=== PATIENT | male | born 1970 | race Caucasian/White ===

== ENCOUNTER 2016-09-09 12:15 | Emergency (ER) | payer OTHER ==
[2016-09-09 12:51] VITALS: BP 135/83; BMI 35.9
--- NOTE | 2016-09-09 13:07 | PDOC ---
History of Present Illness - General Chief Complaint: Pain Stated Complaint: rt hand swelling Time Seen by Provider: 09/09/16 13:07 History Source: Patient, Old Records Exam Limitations: No Limitations - History of Present Illness Initial Comments: 09/09/16 13:07 45 y/o right-hand dominant male with h/o HTN presents to the ED with c/o pain and swelling to his right hand that started yesterday. The patient states that he may have struck it against something but he has no distinct recollection of trauma. He states that the pain is mostly in the dorsum of the hand. He did not take anything for the pain. He denies fevers and chills. Past History - Past Medical History Allergies/Adverse Reactions: Allergies Allergy/AdvReac Type Severity Reaction Status Date / Time No Known Allergies Allergy Verified 09/09/16 12:47 Home Medications: Ambulatory Orders Aspirin [Aspirin EC] 325 mg PO DAILY 09/09/16 Olmesartan Medoxomil [Benicar (Nf)] 40 mg PO DAILY 09/09/16 Ramipril [Altace] 10 mg PO DAILY 09/09/16 HTN: Yes - Immunization History Td Vaccination: No TDAP Vaccination: No Immunization Up to Date: Yes - Psycho/Social/Smoking Cessation Hx Anxiety: No Suicidal Ideation: No Smoking History: Never smoked Have you smoked in the past 12 months: No Information on smoking cessation initiated: No Hx Alcohol Use: No Drug/Substance Use Hx: No Substance Use Type: None Review of Systems - Review of Systems Able to Perform ROS?: Yes Is the patient limited Luxembourger proficient: No Constitutional: No: Symptoms Reported HEENTM: No: Symptoms Reported Respiratory: No: Symptoms reported Cardiac (ROS): No: Symptoms Reported ABD/GI: No: Symptoms Reported : No: Symptoms Reported Musculoskeletal: Yes: See HPI Integumentary: Yes: See HPI Neurological: No: Symptoms reported *Physical Exam - Vital Signs Last Vital Signs Temp Pulse Resp BP Pulse Ox 135/83 97 09/09/16 12:35 09/09/16 12:35 - Physical Exam Comments: 09/09/16 13:09 GENERAL: Well developed, well nourished. Awake and alert. No acute distress. MUSCULOSKELETAL: Right hand There is swelling and ecchymosis to the dorsum of the right hand in the region of the fourth metacarpal. There is associated tenderness to palpation in this area. There is no sensory or motor deficit. EXTREMITIES: No cyanosis. No clubbing. No edema. No calf tenderness. SKIN: Warm and dry. Normal capillary refill. No rashes. No jaundice. NEUROLOGICAL: Alert, awake, appropriate. Cranial nerves 2-12 intact. Grossly non-focal exam. PSYCHIATRIC: Cooperative. Good eye contact. Appropriate mood and affect. Medical Decision Making - Medical Decision Making 09/09/16 13:10 45 y/o male with right hand pain and swelling with no clear VERONICA. DDx includes but is not limited to: contusion, fracture, sprain. Plan: 1. Plain film of the right hand 2. Pain management 3. Observe and re-evaluate 09/09/16 14:17 Addendum: Plain films are neagtive. Will discharge home. Follow-up with PCP. Return to the ED if Sx persist, worsen or new Sx arise. *DC/Admit/Observation/Transfer Diagnosis at time of Disposition: Right hand pain - Discharge Dispostion Disposition: HOME Condition at time of disposition: Stable Admit: No - Patient Instructions Printed Discharge Instructions: DI for Hand Pain Additional Instructions: The X-rays of your hand are negative. You may take tylenol or ibuprofen as needed for the pain. Follow-up with your primary care physician and return to the ED if your symptoms persist, worsen or new symptoms arise.
[2016-09-09 13:35] VITALS: PULSE 87; TEMP 99
== END 2016-09-09 14:35 | disposition home or self-care (01) ==
LOC: MERGE 12:15 → FER 12:15
DX: M79.641 Pain in right hand (principal); I10 Essential (primary) hypertension
CPT/HCPCS: 73130-TC-RT; 99282-25

== ENCOUNTER 2017-04-24 12:11 | Day surgery (SDC) | payer OTHER ==
[2017-04-23 15:49] VITALS: BMI 39.5
[2017-04-24 12:41] LABS: BASOPHIL 0.4 % (0-2.0); EOSINOPHIL 1.1 % (0-4.5); MEAN CELL VOLUME 88.4 fl (80-96); MEAN PLT VOLUME 8.6 fl (7.5-11.1); NEUTROPHILS 66.9 % (42.8-82.8); PLATELET COUNT 196 K/MM3 (134-434); RDW 14.5 % (11.9-15.9); WHITE BLOOD COUNT 6.8 K/mm3 (4.0-10.0)
[2017-04-24 12:45] LABS: URINE APPEARANCE SLCLOUDY; URINE BILIRUBIN NEGATIVE (NEGATIVE); URINE BLOOD NEGATIVE (NEGATIVE); URINE COLOR YELLOW; URINE GLUCOSE (UA) NEGATIVE (NEGATIVE); URINE KETONE NEGATIVE (NEGATIVE); URINE NITRITE NEGATIVE (NEGATIVE); URINE PROTEIN NEGATIVE (NEGATIVE); URINE UROBILINOGEN NEGATIVE mg/dL (0.2-1.0)
[2017-04-24 12:54] LABS: INR 0.98 (0.82-1.09); PROTHROMBIN TIME (PATIENT) 11.1 SEC (9.98-11.88)
[2017-04-24 12:57] LABS: ACTIVATED PTT 28.5 SECONDS (26.9-34.4)
[2017-04-24 12:59] LABS: ALK PHOS 91 U/L (45-117); ANION GAP 9 (8-16); BILIRUBIN,TOTAL 0.8 mg/dL (0.2-1.0); CALCIUM 9.4 mg/dL (8.5-10.1); CO2 24 mmol/L (21-32); CREATININE 0.9 mg/dL (0.7-1.3); GLUCOSE,RANDOM 93 mg/dL (74-106); SGOT/AST 32 U/L (15-37); SGPT/ALT 70 U/L (12-78)
[2017-04-24] MEDS ORDERED: ROCURONIUM BROMIDE 50 MG/5 ML VIAL ONE ×2 (15:06→15:52)
[2017-04-24] MEDS ORDERED: MIDAZOLAM HCL 2 MG/2 ML SINGLE DOSE VIAL ONE (15:06)
[2017-04-24] MEDS ORDERED: SUCCINYLCHOLINE CHLORIDE 200 MG/10 ML VIAL ONE (15:06)
[2017-04-24] MEDS ORDERED: PROPOFOL 20 ML ONE ×2 (15:06→15:34)
[2017-04-24] MEDS ORDERED: fentaNYL CITRATE 250 MCG/5 ML VIAL ONE (15:06)
[2017-04-24] MEDS ORDERED: BUPIVACAINE HCL/PF 0.5% (5MG/ML) 10 ML VIAL ONE (15:07)
[2017-04-24] MEDS ORDERED: DEXAMETHASONE SOD PHOSPHATE 4 MG/1 ML VIAL ONE (15:38)
[2017-04-24] MEDS ORDERED: ceFAZolin SODIUM 1 GM VIAL ONE (15:38)
[2017-04-24] MEDS ORDERED: ceFAZolin SODIUM 1 GM VIAL IVPB ONE (15:40)
[2017-04-24] MEDS ORDERED: ePHEDrine SULFATE 50 MG/1 ML AMPULE ONE (16:23)
[2017-04-24] MEDS ORDERED: GLYCOPYRROLATE 0.2 MG/1 ML VIAL ONE (16:38)
[2017-04-24] MEDS ORDERED: NEOSTIGMINE METHYLSULFATE 0.5 MG/ML - 10 ML MDV ONE (16:38)
[2017-04-24] MEDS ORDERED: BUPIVACAINE HCL/PF 0.5% (5MG/ML) 10 ML VIAL IJ ONE (16:49)
[2017-04-24] MEDS ORDERED: ONDANSETRON 4 MG/2 ML VIAL IVPUSH PRN (17:02)
[2017-04-24] MEDS ORDERED: ENOXAPARIN NA (PORCINE) 40 MG/0.4 ML DISP.SYRIN SQ ONE ×2 (17:02→19:05)
[2017-04-24] MEDS ORDERED: HYDROmorphone HCL CARPU-JECT 1 MG/1 ML DISP.SYRIN IVPB PRN (17:05)
--- NOTE | 2017-04-24 17:14 | OP ---
Operative Note - Note: Operative Date: 04/24/17 Pre-Operative Diagnosis: Morbid Obesity. Hypertension Operation: Laparoscopic Gastric Band. Wedge biopsy of liver Findings: 30 ml gastric pouch created with APS band Enlarged left lobe of liver noted and wedge biopsy performed Implants: Gastric Band plus sub-Q port Post-Operative Diagnosis: Same as Pre-op (Hepatomegaly) Surgeon: Jus Smith Director Video: Jamil Rose Anesthesia: General Estimated Blood Loss (mls): 30 Operative Report Dictated: Yes
[2017-04-24] MEDS ORDERED: SODIUM CHLORIDE 1,000 ML IV SCH (17:15)
[2017-04-24] MEDS ORDERED: oxyCODONE HCL 5 MG TABLET PO PRN (17:16)
[2017-04-24] MEDS ORDERED: PROMETHAZINE HCL 25 MG/1 ML VIAL IVPUSH PRN (17:16)
[2017-04-24] MEDS ORDERED: LACTATED RINGERS SOLUTION 1,000 ML IV SCH (17:30)
[2017-04-24] MEDS ORDERED: FAMOTIDINE 20 MG/50 ML IVPB 20 MG/50 ML MG IVPB ONE (17:33)
[2017-04-24 17:41] LABS: URINE LEUK ESTERASE Negative (NEGATIVE)
[2017-04-24 18:01] LABS: MCH 30.4 pg (25.7-33.7); MCHC 33.7 g/dl (32.0-35.9); MEAN CELL VOLUME 89.9 fl (80-96); MEAN PLT VOLUME 9.3 fl (7.5-11.1); PLATELET COUNT 165 K/MM3 (134-434); RDW 14.4 % (11.9-15.9); WHITE BLOOD COUNT 9.8 K/mm3 (4.0-10.0)
[2017-04-24 18:29] LABS: ANION GAP 10 (8-16); CALCIUM 9.1 mg/dL (8.5-10.1); CO2 26 mmol/L (21-32); GLUCOSE,RANDOM 108 mg/dL (74-106)
[2017-04-24 19:46] VITALS: BP 145/85; PULSE 100; TEMP 98.4
[2017-04-24] MEDS ORDERED: FAMOTIDINE/PF 20 MG/12 ML PUSH IVPUSH SCH ×2 (22:00)
[2017-04-24] MEDS ORDERED: FAMOTIDINE 20 MG/50 ML IVPB 50 ML IVPB SCH (22:00)
--- NOTE | 2017-04-25 06:18 | OP ---
DATE OF OPERATION: 04/24/2017 PREOPERATIVE DIAGNOSES: 1. Morbid obesity. 2. Hypertension. POSTOPERATIVE DIAGNOSES: 1. Morbid obesity. 2. Hypertension. 3. Hepatomegaly. PROCEDURE PERFORMED: 1. Gastric band for gastric restriction. 2. Wedge biopsy of the left lobe of the liver. 3. Diagnostic laparoscopy. OPERATING SURGEON: Jus Smith MD RESPIRATORY CARE SPECIALIST: Jamil Rose MD ANESTHESIA: General. OPERATIVE PROCEDURE: The patient was brought into the operating room and placed on the OR table in the supine position. All precautions were taken initially, including padding for the back and the feet and Venodyne boots were placed on both lower extremities. At that point, the abdomen was prepped and draped in the usual manner. A Veress needle was placed in the left upper quadrant and a pneumoperitoneum was established. A No. 12 bladeless trocar was placed in the left upper quadrant. Through that trocar, a laparoscopic camera was placed. Under direct vision, No. 5 and 15 bladeless trocars were placed in the right lower quadrant and a No. 12 bladeless trocar below the left costal margin. A John liver retractor was then placed in the epigastrium to retract the left lobe of the liver. The patient was then placed in the 20-degree reverse Trendelenburg position. It should be noted that the liver was extremely enlarged. Because of that and because the patient was on Lipitor for hyperlipidemia, it was decided that a wedge biopsy would be performed. With electrocautery turned high, electrocautery was able to score the capsule on the edge of the inferior portion of the left lobe of the liver and this continued through the parenchyma until a wedge portion was taken and sent off the field to Pathology as a specimen. The parenchymal minor bleeding was easily controlled with electrocautery. Anesthesia then placed the patient in the 20-degree reverse Trendelenburg position. After the assistant news director surgeon retracted the omentum inferiorly, the operating surgeon retracted the fundus of the stomach toward the patient's right side. This exposed the left esophagogastric junction. Electrocautery was used to score the peritoneum over the left esophagogastric junction and this continued superiorly until the left ermelinda of the diaphragm was noted. The stomach was then pulled to the patient's left side by the assistant news director surgeon and the operating surgeon located the caudate lobe of the liver. An opening was made in an avascular plane and then the gastrohepatic ligament was divided with hemoclips up toward the right esophagogastric junction. The right ermelinda of the diaphragm as well as the peritoneum anterior to it were cauterized with electrocautery. The laparoscopic instruments were then used to make a blunt tunnel from the right to left ermelinda as well as free in the left upper quadrant of the abdomen. The gastric band which was an AP standard band was then prepped by the OR team, placed within the No. 15 port site. The band tubing was placed in the laparoscopic instrument which was pulled and withdrawn to the patient's right side. The band tubing was placed into the band buckle which was tied or cinched down and the band was rotated to the patient's right side. The laparoscopic instrument easily fit between the band and the anterior stomach wall. The band was then sewn in place with the EndoStitch used to grab bites of stomach serosa above and below the band and tied over the band. When it was completed, the band tubing No. 15 port site and under direct vision all trocars were removed with the pneumoperitoneum released. The No. 15 port site was then extended laterally and dissection continued with electrocautery down to the right anterior rectus muscle fascia. Three No. 2-0 Prolenes were placed on 3 sides of the fascia and the port was then attached to the right anterior rectus muscle with this. Also, the opening going into the abdomen was closed with 2-0 Prolene to prevent internal hernia and prevent bleeding. At that point, all trocar sites received 0.25% Marcaine, were closed with 4-0 Biosyn in a subcuticular fashion. The No. 15 trocar site was closed with 3-0 Vicryl in subcutaneous tissue followed by 4-0 Biosyn in a subcuticular fashion. Dressings were applied. The patient awoke from anesthesia and transferred out of the operating room to the recovery room in stable condition. Expected blood loss was 30 mL. Nessa [id number]
--- NOTE | 2017-04-28 15:17 | PATH ---
Surgical Pathology Report Patient Name: DORI MARRUFO [facility]. Rec. #: [id number] /Age/Gender: 1970 (Age: 46) / M Account: [id number] Location: [facility] SURGICAL Taken: 04/24/2017 Received: 04/25/2017 Reported: 04/28/2017 Physicians: Jus Smith M.D. Specimen(s) Received LIVER BIOPSY Clinical History Preoperative diagnosis: Morbid obesity Final Diagnosis LIVER, WEDGE BIOPSY: BENIGN LIVER TISSUE WITH THERMAL ARTIFACT LIMITING HISTOLOGIC EVALUATION. MINIMAL MACROVESICULAR STEATOSIS PRESENT. TRICHROME STAIN SHOWS NO INCREASED FIBROSIS. IRON STAIN IS NEGATIVE FOR SIDEROSIS. Comment: Recommend correlation with clinical findings and follow up as clinically indicated. Electronically Signed Mk Kapoor M.D. Gross Description Received in formalin labeled "liver biopsy," is a 1.7 x 1.2 x 0.5 cm sorenson-brown, irregular portion of soft tissue, consistent with a portion of liver. The specimen is bisected and entirely submitted in one cassette. 04/25/201704/25/2017
== END 2017-04-24 19:48 | disposition home or self-care (01) ==
LOC: JASU-SURG 12:11
PROVIDERS: ATTEND Surgery
PROC: 0FB24ZX Excision of Left Lobe Liver, Percutaneous Endoscopic Approach, Diagnostic (ICD-10-PCS; 2017-04-24)
PROC: 0DV64CZ Restriction of Stomach with Extraluminal Device, Percutaneous Endoscopic Approach (ICD-10-PCS; principal; 2017-04-24 14:15)
DX: E66.01 Morbid (severe) obesity due to excess calories (principal); R16.0 Hepatomegaly, not elsewhere classified
CPT/HCPCS: 36415; 80048; 80053; 81003; 85025; 85027; 85610; 85730; 86850; 86900; 86901; 88307-TC; 88313-TC; 94010; 94760

== ENCOUNTER 2017-05-22 19:06 | Emergency (ER) | payer OTHER ==
--- NOTE | 2017-05-22 19:17 | PDOC ---
History of Present Illness - General History Source: Patient Exam Limitations: No Limitations - History of Present Illness Initial Comments: Medical decision making: This is a 46-year-old male who was sent in by his primary care doctor to rule out kidney stone. Patient had an ultrasound earlier in the day that showed hydronephrosis. Patient also had blood work that showed an elevated creatinine I will obtain CBC, comp, urinalysis + CT to rule out kidney stone + Give Toradol for pain patient did not want anything for nausea at this time. Follow-up results of labs and CAT scan recess and reevaluate patient 20:30 A portion of this note was documented by scribe services under my direction. I have reviewed the details of the note, within reason, and agree with the documentation. The case summary and management plan written by me. 05/22/17 20:37 Reevaluation patient feels better post Toradol 21:00 CT scan again shows a distal UVJ stone approximately 2 mm with some resultant mild to hydronephrosis. This CAT scan also shows an incidental finding of a couple of small cysts versus hemangiomas in the liver. Patient was made aware of them he was given a copy of his CAT scan and told to follow that up with his primary care doctor Assessment and plan: This is a 46-year-old male who comes in complaining of right flank pain radiating into his right groin. Patient does have a 2 mm stone. Patient given Toradol with improvement in his symptoms. Patient not nausea shows or vomiting able to tolerate by mouth's prescriptions at the pharmacy for Flomax, Naprosyn and Zofran. Patient will follow-up with his primary care Dr. Dr. Scott tomorrow 05/22/17 21:17 <Sami Yin I - Last Filed: 05/22/17 21:17> - General History Source: Patient Exam Limitations: No Limitations - History of Present Illness Initial Comments: 05/22/17 19:47 The patient is a 46 year old male, with a significant past medical history of a gastric bypass (04/24/17) and hypertension, who presents to the emergency department complaining of right flank pain for approximately 4 days. The patient reports sudden onset of right flank pain . He reports the pain radiates into his right lower abdomen and into his right groin. He denies any associated dysuria, hematuria, frequency, or urgency. Patient reports he has been taking Tylenol for the pain with mild relief. Per PCP, Dr. Scott, patient noted an increase in the patients Creatinine to 1.7, 2 days ago. At the time, patient had an US of his kidneys which showed mild hydronephrosis, but no renal stone was visualized. However, after reassessment today, patients Creatinine is down to 1.5. Patient denies any associated fever, chills, nausea, or vomiting. He denies any diarrhea or constipation. He denies any trauma, recent travel or sick contacts. He denies any history of kidney stones. PAST MEDICAL HISTORY: Hypertension PAST SURGICAL HISTORY: Gastric bypass (04/24/17) FAMILY HISTORY: No pertinent history SOCIAL HISTORY: Pt lives with family and is employed. Non smoker. No ETOH or recreational drug use. MEDICATIONS: Reviewed ALLERGIES: As per nursing notes General: No fevers or chills, no weakness, no weight loss HEENT: No change in vision. No sore throat,. No ear pain CardioVascular: No chest pain or shortness of breath Respiratory: No cough, or wheezing. Gastrointestinal: Yes right lower quadrant abdominal pain. No nausea, vomiting, diarrhea or constipation, No rectal bleeding Genitourinary: Yes right flank pain. No dysuria, hematuria, or frequency Musculoskeletal: Yes right groin pain. No other joint or muscle pain or swelling Neurologic: No headache, vertigo, dizziness or loss of consciousness Psychiatric: nor depression Skin: No rashes or easy bruising Endocrine: no increased thirst or abnormal weight change Allergic: no skin or latex allergy All other systems reviewed and normal General: Well-nourished well-developed individual, no acute distress HEENT: Throat: Normal, tonsils normal, no erythema or exudate Neck: Supple, no meningeal signs, no lymphadenopathy Eyes: Pupils equal reactive and round, extraocular motion intact Cardiac: S1-S2 normal, regular rate and rhythm, no murmurs rubs or gallops Back: No CVA tenderness. No flank tenderness. Abdomen: Soft, nondistended, normal bowel sounds, nontender to palpation diffusely Extremities: Warm, dry, no cyanosis, clubbing, or edema Skin: No rashes Neuro: Alert and oriented x3, nonfocal exam, grossly intact, normal gait Psych: Normal mood and affect <Field,Giomilsy - Last Filed: 05/22/17 21:25> - General Chief Complaint: Pain, Acute Stated Complaint: RT FLANK PAIN Time Seen by Provider: 05/22/17 19:17 Past History - Past Medical History Anemia: No Asthma: No Cancer: No Cardiac Disorders: No CVA: No COPD: No CHF: No Dementia: No Diabetes: No GI Disorders: No Disorders: No HTN: Yes Hypercholesterolemia: No Liver Disease: No Seizures: No Thyroid Disease: No - Immunization History Td Vaccination: No TDAP Vaccination: No Immunization Up to Date: Yes - Suicide/Smoking/Psychosocial Hx Smoking History: Never smoked Have you smoked in the past 12 months: No Hx Alcohol Use: Yes (SOCIAL) Drug/Substance Use Hx: No Substance Use Type: None <Sami Yin I - Last Filed: 05/22/17 21:17> <Nayeli Field - Last Filed: 05/22/17 21:25> - Past Medical History Allergies/Adverse Reactions: Allergies Allergy/AdvReac Type Severity Reaction Status Date / Time No Known Allergies Allergy Verified 04/24/17 13:08 Home Medications: Ambulatory Orders Aspirin [Aspirin EC] 325 mg PO DAILY 09/09/16 Ramipril [Altace] 10 mg PO DAILY 09/09/16 Atorvastatin Ca [Lipitor] 20 mg PO HS 04/23/17 Naproxen 500 mg PO BID #30 tablet 05/22/17 Ondansetron [Zofran Odt -] 4 mg SL TID #12 od.tablet 05/22/17 Tamsulosin HCl [Flomax] 0.4 mg PO DAILY #14 cap.er.24h 05/22/17 *Physical Exam - Vital Signs Last Vital Signs Temp Pulse Resp BP Pulse Ox 98.2 F 86 16 139/83 98 05/22/17 19:13 05/22/17 19:13 05/22/17 19:13 05/22/17 19:13 05/22/17 19:13 <Nayeli Field - Last Filed: 05/22/17 21:25> ED Treatment Course - LABORATORY CBC & Chemistry Diagram: 05/22/17 19:38 05/22/17 19:38 <Sami Yin I - Last Filed: 05/22/17 21:17> - LABORATORY CBC & Chemistry Diagram: 05/22/17 19:38 05/22/17 19:38 - RADIOLOGY Radiograph Interpretation: 05/22/17 21:24 EXAM: CT Abdomen and Pelvis INTERPRETED BY: Dr. Flores REVIEWED BY: Dr. Art IMPRESSION: A 2 mm distal right ureteral calculus is noted adjacent to the ureterovesical junction with resultant mild hydronephrosis. No other definite urinary tract calculus is identified. 0.5 cm 0.8 cm right hepatic lobe hypodense foci are noted which are nonspecific on the basis of this exam although most likely representing cysts and/or hemangiomas on a statistical basis. Correlate with nonemergent sonography versus 3 month follow-up CT or MRI to document stability. No prior abdominal imaging studies are available at this facility for direct comparison. <Nayeli Field - Last Filed: 05/22/17 21:25> *DC/Admit/Observation/Transfer <Sami Yin I - Last Filed: 05/22/17 21:17> - Attestations Scribe Attestion: 05/22/17 19:47 Documentation prepared by Nayeli Field, acting as medical sonographer for Sami Yin MD. <Nayeli Field - Last Filed: 05/22/17 21:25> Diagnosis at time of Disposition: Renal calculi - Discharge Dispostion Disposition: HOME Condition at time of disposition: Stable - Prescriptions Prescriptions: Naproxen 500 mg PO BID #30 tablet Ondansetron [Zofran Odt -] 4 mg SL TID #12 od.tablet Tamsulosin HCl [Flomax] 0.4 mg PO DAILY #14 cap.er.24h - Referrals Referrals: Tamara Scott MD [Primary Care Provider] - - Patient Instructions Additional Instructions: For the pain you can take Naprosyn 1 tablet twice a day as needed. If you develop nausea or vomiting take Zofran 1 tablet 3 times a day as needed. To help the urine keep flowing take Flomax once a day. There was an incidental finding on your CAT scan of a couple of small areas in your liver that should be followed up with their most likely a cyst and nothing to be worried about blood please make Dr. Scott aware of them so she can follow them up further. Return to the emergency department immediately with ANY new, persistent or worsening symptoms. Continue any medications as previously prescribed by your physician. You should follow up with your primary doctor as soon as possible regarding today's emergency department visit. . Please make sure your doctor reviews the results of your emergency evaluation. Thank you for coming to the Emergency Department today for your care. It was a pleasure to see you today. Please note that your evaluation is INCOMPLETE until you follow-up with your doctor. - Post Discharge Activity
[2017-05-22 19:21] VITALS: BP 139/83; PULSE 86; TEMP 98.2; BMI 37.3
[2017-05-22] MEDS ORDERED: SODIUM CHLORIDE 1,000 ML IV ONE (19:29)
[2017-05-22 19:56] LABS: BASO % 0.5 % (0-2.0); EOS % 2.8 % (0-4.5); MCHC 33.8 g/dl (32.0-35.9); MEAN CELL VOLUME 88.5 fl (80-96); MEAN PLT VOLUME 10.3 fl (7.5-11.1); NEUT % 70.6 % (42.8-82.8); PLATELET COUNT 152 K/MM3 (134-434); RDW 13.2 % (11.9-15.9); WHITE BLOOD COUNT 7.1 K/mm3 (4.0-10.8)
[2017-05-22 20:10] LABS: ALBUMIN 3.7 g/dl (3.5-5.0); ALK PHOS 78 U/L (32-92); ANION GAP 9 (8-16); BILIRUBIN,TOTAL 0.7 mg/dl (0.2-1.0); CALCIUM 8.7 mg/dl (8.4-10.2); CO2 25 mmol/L (22-28); CREATININE 1.6 mg/dl (0.6-1.3); GLUCOSE,RANDOM 107 mg/dl (74-106); SGOT/AST 21 U/L (10-42); SGPT/ALT 25 U/L (10-40); TOT PROT 6.1 g/dl (6.4-8.3)
[2017-05-22] MEDS ORDERED: KETOROLAC TROMETHAMINE 30 MG/1 ML VIAL IVPUSH ONE (20:22)
[2017-05-22] MEDS ORDERED: KETOROLAC TROMETHAMINE 30 MG/1 ML VIAL ONE (20:23)
[2017-05-22 21:11] LABS: PH,URINE 5.5 (4.5-8); URINE APPEARANCE Clear; URINE BILIRUBIN Negative (NEGATIVE); URINE BLOOD Negative (NEGATIVE); URINE GLUCOSE (UA) Negative (NEGATIVE); URINE KETONE Negative (NEGATIVE); URINE LEUK ESTERASE Negative (NEGATIVE); URINE NITRITE Negative (NEGATIVE); URINE PROTEIN Negative (NEGATIVE); URINE UROBILINOGEN 0.2 (0.2-1.0)
[2017-05-22 21:12] LABS: URINE COLOR YELLOW
== END 2017-05-22 21:27 | disposition home or self-care (01) ==
LOC: FER 19:06
PROC: 3E0333Z Introduction of Anti-inflammatory into Peripheral Vein, Percutaneous Approach (ICD-10-PCS; principal; 2017-05-22)
PROC: 3E0337Z Introduction of Electrolytic and Water Balance Substance into Peripheral Vein, Percutaneous Approach (ICD-10-PCS; 2017-05-22)
DX: I10 Essential (primary) hypertension (principal)
CPT/HCPCS: 36415; 74176-TC; 80053; 81003; 85025; 99283-25

== ENCOUNTER 2024-02-05 07:18 | Day surgery (SDC) | payer OTHER ==
[2024-02-02 15:01] VITALS: BMI 29.7
[2024-02-05 07:43] VITALS: RESP 18
[2024-02-05] MEDS ORDERED: LIDOCAINE HCL/PF 2% SDV 5ML VIAL ONE (07:59)
[2024-02-05] MEDS ORDERED: PROPOFOL 120 ML ONE (08:00)
[2024-02-05 08:58] VITALS: TEMP 97.3
[2024-02-05 09:15] VITALS: BP 111/70; PULSE 94
== END 2024-02-05 09:15 | disposition home or self-care (01) ==
LOC: FASU-ENDO 07:18
PROVIDERS: ATTEND Internal Medicine Gastroenterology
PROC: 0DB98ZX Excision of Duodenum, Via Natural or Artificial Opening Endoscopic, Diagnostic (ICD-10-PCS; 2024-02-05)
PROC: 0DB78ZX Excision of Stomach, Pylorus, Via Natural or Artificial Opening Endoscopic, Diagnostic (ICD-10-PCS; 2024-02-05)
PROC: 0DB68ZX Excision of Stomach, Via Natural or Artificial Opening Endoscopic, Diagnostic (ICD-10-PCS; 2024-02-05)
PROC: 0DB38ZX Excision of Lower Esophagus, Via Natural or Artificial Opening Endoscopic, Diagnostic (ICD-10-PCS; 2024-02-05)
PROC: 0DJD8ZZ Inspection of Lower Intestinal Tract, Via Natural or Artificial Opening Endoscopic (ICD-10-PCS; principal; 2024-02-05 08:13)
DX: Z12.11 Encounter for screening for malignant neoplasm of colon (principal); K57.30 Diverticulosis of large intestine without perforation or abscess without bleeding; K20.90 Esophagitis, unspecified without bleeding; K29.50 Unspecified chronic gastritis without bleeding; L83 Acanthosis nigricans; R93.3 Abnormal findings on diagnostic imaging of other parts of digestive tract
CPT/HCPCS: 88305-TC; 88312-TC; 88313-TC; 88342-TC